=== PATIENT | female | born 1985 | race Caucasian/White ===

== ENCOUNTER 2018-12-18 17:49 | Inpatient (IN) | payer OTHER ==
[2018-12-18] MEDS ORDERED: Nalbuphine* 10 MG/ML 1 ML VIAL IV ONE (19:53)
[2018-12-18] MEDS ORDERED: Promethazine INJ(RESTRICTED)* 25 MG/ML 1 ML VIAL IV ONE (19:53)
[2018-12-18] MEDS ORDERED: Dinoprostone* 10 MG VAG.SUPP VAGINAL STA (19:53)
--- NOTE | 2018-12-18 20:09 | PN ---
L&D Outpatient: Visit - Reproductive Information Estimated Due Date: 12/24/18 Gestational Age: 39 Weeks and 1 Days : 1 Para: 0 - Reason for Visit Visit Reason: cervical ripening - Antepartal Records Antepartal Record: Reviewed, Complicated by: - BMI 32, asthma - Patient History Patient History Significant: Yes Patient History Significant For: GERD, depression, asthma Review of Systems Constitutional: Comfortable CV Complaint: No Respiratory: Shortness of Breath: No Gastrointestinal: No Nausea/Vomiting, Normal Bowel Movement Genitourinary: No Dysuria, No Bleeding, No Leaking Fluid Musculoskeletal: No Complaint, No Epigastric Pain Neurological: No Headache, No Visual Changes Movement: Normal L&D Outpatient: Exam Vitals - Most Recent: T:97.9, P:83, R:20, BP: 118/72, O2:97% - Cervical Exam Cervical Exam: 2-3/60/-1 - Abdominal Exam Abdomen Exam: Fundal Height Consistent with Dates - Membranes Membrane Status: Intact - Ultrasound/Biophysical Profile Ultrasound Status: Not Done EFM Findings - External Monitor Findings Baseline Heart Rate: 135 External Monitor Findings: Accelerations Present, No Pattern of Variable or Late Decelerations, Variability Moderate, Baseline Stable Contractions: None, Regular L&D Outpatient: Asses/Plan Assessment: 33 y.o. , 39wks EGA, cervical ripening - Discharge Diagnosis Discharge Diagnosis: Supervision-Normal Preg - cervical ripening overnight and therapeutic rest with reevaluation in AM
[2018-12-18 21:20] LABS: ABS Basophils 0.1 10^3/ul (0-0.2); ABS Eosinophils 0.1 10^3/ul (0-0.6); ABS Lymphocytes 2.1 10^3/ul (1.0-4.8); ABS Monocytes 0.5 10^3/ul (0-0.8); ABS Neutrophils 6.9 10^3/ul (1.5-7.7); Eosinophil % 1.3 %; Hematocrit 36 % (35-47); Hemoglobin 11.9 g/dL (12.0-16.0); Lymphocyte % 21.8 %; Mean Corpuscular HGB Conc 33 g/dL (31-36); Mean Corpuscular Hemoglobin 29 pg (27-31); Mean Corpuscular Volume 87 fL (80-97); Mean Platelet Volume 9.7 fL (7.4-10.4); Platelet Count 294 10^3/uL (150-450); Red Blood Count 4.14 10^6 /uL (3.70-4.87); Red Cell Distribution Width 15 % (10-15); White Blood Count 9.8 10^3/uL (3.5-10.8)
[2018-12-18 22:54] LABS: Urine Benzodiazepine Screen None Detected (None Detect); Urine Opiates Screen None Detected (None Detect)
--- NOTE | 2018-12-19 09:00 | PN ---
Progress Note - Progress Note Date of Service: 12/19/18 SOAP: Subjective: Pt rested well overnight but reports irregular contractions since 5:30 AM. -LOF , -VB, +FM. Objective: BP:115/74, P:78. FHR: 135bpm, + accels, -decels, moderate variability. Cervix: 3/80/-1 Assessment: 33 y.o. 39w2d EGA, Cat I NST, cervical ripening Plan: 1) Reviewed options with patient and R/B of continued IOL versus expectant mgmt and reevaluation next week. Pt elects to con't cervidil until noon, reevaluate and if no further progress discharge to home with follow up on Saturday. 2) Questions answered to pt satisfaction
[2018-12-19] MEDS ORDERED: Lactated Ringers 1000 ML Bag* 1,000 ML IV ONE (12:32)
[2018-12-19] MEDS ORDERED: Buffered Lidocaine 1% SYRIN* 1 ML/SYRINGE INTRADERM ONE (12:32)
--- NOTE | 2018-12-19 12:40 | HP ---
General Information - Reason for Visit Pt presented 12/18/18 for cervical ripening. Pt rested well overnight but c/o irregular ctx starting around 5:30 AM. Cervidil left in place and pt rechecked at noon with cervical change more regular ctx. AROM and cervidil removal. Pt desires hydrotherapy and nitrous for pain mgmt as first choices but is considering epidural PRN. - General Information Maternal Age: 33 Grav: 1 Para: 0 SAB: 0 IEA: 0 Estimated Due Date: 12/24/18 Determined By: Early Ultrasound Gestational Age in Weeks/Days: 39.2 Maternal Blood Type and Rh: A Negative - Results this Serology/RPR Result: Non-Reactive Rubella Result: Immune HBsAg Result: Negative HIV Result: Negative GBS Culture Result: Negative Past Medical History Pertinent Past Medical History: See Records - GERD, depression, asthma Pertinent Past Surgical History: See Records - wisdom tooth extraction , removal of scar tissue between breast Pertinent Family History: See Records - M: CVD; MGF: stroke; PGM: cancer, psych; F: DM - Antepartal Records Antepartal Records: Reviewed, Complicated by: - asthma, BMI 32 Review of Systems Constitutional: Uncomfortable CV Complaint: No Respiratory: Shortness of Breath: No Gastrointestinal: No Nausea/Vomiting, Normal Bowel Movement Genitourinary: No Dysuria, No Bleeding, No Leaking Fluid Musculoskeletal: No Epigastric Pain, Contractions Neurological: No Headache, No Visual Changes Movement: Normal Exam Allergies/Adverse Reactions: Allergies No Known Allergies Allergy (Verified 12/18/18 20:01) BP:115/74, T:99.6 Lab Values - Entire Visit: Laboratory Tests 12/18/18 12/18/18 12/18/18 21:05 21:05 22:20 WBC 9.8 RBC 4.14 Hgb 11.9 L Hct 36 MCV 87 MCH 29 MCHC 33 RDW 15 Plt Count 294 MPV 9.7 Neut % (Auto) 71.0 Lymph % (Auto) 21.8 Wilkin % (Auto) 5.1 Eos % (Auto) 1.3 Baso % (Auto) 0.8 Absolute Neuts (auto) 6.9 Absolute Lymphs (auto) 2.1 Absolute Monos (auto) 0.5 Absolute Eos (auto) 0.1 Absolute Basos (auto) 0.1 Absolute Nucleated RBC 0.0 Nucleated RBC % 0.0 Urine Opiates Screen None detected Ur Barbiturates Screen None detected Ur Phencyclidine Scrn None detected Ur Amphetamines Screen None detected U Benzodiazepines Scrn None detected Urine Cocaine Screen None detected U Cannabinoids Screen None detected Blood Type A Negative Antibody Screen Negative - Measurements Height: 5 ft 6 in Weight: 230 lb Weight in lbs: [phone] Body Mass Index (BMI): 37.1 Pre- Weight: 185 lb Weight Gained This : 45 lbs and 0 ozs - Exam Breast: Breast Exam Deferred CVA: No CVA Tenderness Extremities: No Edema Heart: Normal Rhythm/Heart Sounds HEENT: No Significant Findings Lungs: Clear Bilaterally Rectal: Rectal Exam Deferred Reflexes: DTR 2+ Thyroid: No Thyromegaly - Abdominal Exam Abdomen Exam: Fundal Height Consistent with Dates - Ultrasound/Biophysical Profile Ultrasound Status: Not Done Targeted Exam Findings Estimated Weight: 7lbs 12oz Cervical Exam: 5cm, 6cm Effacement: 90% Station: -1 Presenting Part: Vertex Membrane Status: AROM Amniotic Fluid Evaluation: Clear Bleeding/Discharge: None EFM Findings - External Monitor Findings Baseline Heart Rate: 135 External Monitor Findings: Accelerations Present, No Pattern of Variable or Late Decelerations, Variability Moderate, Baseline Stable Contractions: Regular, Moderate, 45-90 Seconds Contraction Frequency: 2-4 Assessment/Plan - Assessment 33 y.o. 39w2d EGA, early labor, GBS negative, cat I NST - Plan Plan: Admit - Anticipate Vaginal Delivery - Date/Time of Admission Date of Admission: 12/19/18 Time of Admission: 12:30
[2018-12-19] MEDS ORDERED: Lactated Ringers 1000 ML Bag* 1,000 ML IV SCH ×2 (13:00→21:00)
[2018-12-19] MEDS ORDERED: OBEPIDURAL* 0 ML EPIDURAL ONE (16:06)
[2018-12-19] MEDS ORDERED: fentaNYL* 50 MCG/ML 2 ML VIAL (100 MCG VIAL) ONE (16:47)
[2018-12-19] MEDS ORDERED: Oxytocin in LR* 20 UNITS/1,000 ML BAG IVPB ONE (19:54)
[2018-12-19] MEDS ORDERED: Glycerin ADULT SUPP PR PRN (20:29)
[2018-12-19] MEDS ORDERED: RHO D Immune Globulin (HUMAN)* 300 MCG = 1,500 I.U. INJ IM ONE (20:29)
[2018-12-19] MEDS ORDERED: Misoprostol TAB* 200 MCG PR ONE (20:29)
--- NOTE | 2018-12-19 20:35 | PROCNOTE ---
[facility] OB: Delivery Note - Delivery A Date of : 12/19/18 Time of : 19:48 Sex: Female Weight at : 6 lb 14 oz Score 1 Minute: 9 Score 5 Minutes: 9 Gestational Age in Weeks and Days at Delivery: 39 Weeks and 2 Days Delivery Method: Spontaneous Vaginal Labor: Induced Amniotic Fluid: Clear Estimated Blood Loss: 650 Anesthesia/Analgesia: ITF/Spinal for Labor Delivered By: Catie Sim - Nursery Level of Nursery: Regular/Bedside - Perineum Perineal Injury: Perineal Laceration, 1st Degree Perineal Repair: By Delivering Practioner - Events Delivery Events of Note: Pitocin Only After Delivery, Post- Bleeding - Meds Given Delivery Events of Note Comment: Battledore insertion and accesory lobe - Risk for Falls Delivered OB Patient- Risk for Falls: Heavy Bleeding Fall Risk: Patient is at High Risk for Falls
[2018-12-19] MEDS ORDERED: Simethicone TAB* 80 MG TAB.CHEW PO SCH (21:00)
[2018-12-19] MEDS ORDERED: Oxytocin in LR* 20 UNITS/1,000 ML BAG IVPB SCH (21:00)
[2018-12-19] MEDS: Dibucaine 1% 28.35 GM TUBE PR PRN (21:13)
[2018-12-19] MEDS: Ibuprofen TAB* 600 MG PO PRN (21:13)
[2018-12-19] MEDS: Witch Hazel PAD* JAR TOPICAL PRN (21:13)
[2018-12-19] MEDS ORDERED: Ammonia Inhalant* 1 EA AMP ONE (22:31)
[2018-12-19] MEDS: Acetaminophen TAB* 325 MG PO PRN (22:55)
[2018-12-19] MEDS: Docusate CAP* 100 MG PO SCH (23:10)
[2018-12-20] MEDS ORDERED: diPHENhydraMINE PO* 50 MG PO ONE (00:55)
[2018-12-20 07:10] LABS: ABS Eosinophils 0.1 10^3/ul (0-0.6); ABS Lymphocytes 3.2 10^3/ul (1.0-4.8); ABS Neutrophils 10.6 10^3/ul (1.5-7.7); Hematocrit 31 % (35-47); Hemoglobin 10.3 g/dL (12.0-16.0); Lymphocyte % 21.7 %; Mean Corpuscular HGB Conc 34 g/dL (31-36); Mean Corpuscular Hemoglobin 29 pg (27-31); Mean Corpuscular Volume 86 fL (80-97); Mean Platelet Volume 9.3 fL (7.4-10.4); Platelet Count 265 10^3/uL (150-450); Red Blood Count 3.55 10^6 /uL (3.70-4.87); Red Cell Distribution Width 15 % (10-15)
[2018-12-20] MEDS: Ibuprofen TAB* 600 MG PO PRN ×3 (08:04→20:38)
[2018-12-20] MEDS: Docusate CAP* 100 MG PO SCH ×3 (08:05→20:37)
[2018-12-20] MEDS ORDERED: Varicella Virus Vaccine Live* 0.5 ML VIAL SUBCUT ONE (09:00)
[2018-12-20] MEDS ORDERED: Ferrous Gluconate TAB* 324 MG TAB PO SCH (09:00)
[2018-12-20] MEDS: Acetaminophen TAB* 325 MG PO PRN ×3 (09:54→20:37)
[2018-12-20] MEDS: Witch Hazel PAD* JAR TOPICAL PRN (09:54)
[2018-12-20] MEDS: Dibucaine 1% 28.35 GM TUBE PR PRN (09:55)
[2018-12-21] MEDS: Acetaminophen TAB* 325 MG PO PRN (08:11)
[2018-12-21] MEDS: Ibuprofen TAB* 600 MG PO PRN (08:11)
[2018-12-21] MEDS: Docusate CAP* 100 MG PO SCH (08:12)
[2018-12-21 08:49] VITALS: BP 109/65
== END 2018-12-21 14:33 | disposition home or self-care (01) | DRG 807 ==
LOC: MCHOBOUT 17:49 → MCHOB 12-19 12:37
PROVIDERS: ADMIT Midwife; ATTEND Midwife
PROC: 10E0XZZ Delivery of Products of Conception, External Approach (ICD-10-PCS; principal; 2018-12-19)
PROC: 3E033VJ Introduction of Other Hormone into Peripheral Vein, Percutaneous Approach (ICD-10-PCS; 2018-12-19)
PROC: 0HQ9XZZ Repair Perineum Skin, External Approach (ICD-10-PCS; 2018-12-19)
DX: O99.52 Diseases of the respiratory system complicating childbirth (principal); Z37.0 Single live birth; O99.344 Other mental disorders complicating childbirth; F32.9 Major depressive disorder, single episode, unspecified; O70.0 First degree perineal laceration during delivery; Z3A.39 39 weeks gestation of pregnancy; J45.909 Unspecified asthma, uncomplicated
CPT/HCPCS: 36415; 59200; 80307; 85025; 85461; 86850; 86900; 86901; A9270-GY; J2300; J2550; J2790; J3010